=== PATIENT | male | born 1935 | race Caucasian/White ===

== ENCOUNTER 2022-12-14 19:02 | Emergency (ER) | payer MEDICARE, SELFPAY ==
--- NOTE | ~2022-12-14 | XR_ITS ---
EXAMINATION: XR chest 2V DATE: 12/14/2022 19:27 INDICATION: Cough and shortness of breath and fever. TECHNIQUE: Frontal and lateral views of the chest were obtained. COMPARISON: Chest 2 views 04/17/2016 FINDINGS: There are airspace opacities in right mid and lower lung zones. There is a small loculated right pleural effusion. No pneumothorax. The heart size is normal. IMPRESSION: 1. Airspace opacities in right mid and lower lung zones, consistent with pneumonia. 2. Small loculated right pleural effusion. Reviewed, dictated and finalized at location E. IMPRESSION: 1. Airspace opacities in right mid and lower lung zones, consistent with pneumo abraham. 2. Small loculated right pleural effusion.
--- NOTE | 2022-12-14 19:10 | ED.URI ---
HPI - URI/Sore Throat General Chief Complaint: Upper Respiratory Infection Stated Complaint: Itchy skin, cough, sob Time Seen by Provider: 12/14/22 19:12 Source: patient Mode of arrival: ambulatory Limitations: no limitations History of Present Illness HPI Narrative: 87 y/o male with hx DM2, HTN, CKD, presented for c/o itching all over for over one week without a rash; and reports shortness of breath with exertion and cough which started in the last couple of days. Son at bedside reports he appears to be breathing heavy more often after exertion, and reports he appears fatigued. States he has not even walked outside to get the mail which is unusual for him. Cough is nonproductive. Patient also states he fell twice about 2 weeks ago, and reports scrapes to lower legs and toes. Patient resides in [place], [place]. Denies associated chest pain, palpitations, n/v/d/f/c. Not taking anything for symptoms. Related Data Home Medications Medication Instructions Recorded Confirmed aspirin 81 mg tablet,delayed 81 mg PO DAILY 04/18/19 12/14/22 release blood sugar diagnostic (Contour #10 ea 04/18/19 Next Test Strips) lancets (Microlet Lancet) #50 ea 04/18/19 lancing device with lancets kit #1 ea 04/18/19 (Microlet Next Lancing Device kit) multivitamin 1 tablet PO DAILY 04/18/19 12/14/22 amlodipine 10 mg tablet 10 mg PO DAILY 12/14/22 12/14/22 metformin 850 mg tablet 850 mg PO DAILY 12/14/22 12/14/22 Allergies Allergy/AdvReac Type Severity Reaction Status Date / Time No Known Allergies Allergy Verified 12/14/22 19:15 Review of Systems Review of Systems: CONSTITUTIONAL: Denies body aches, fever, or sweats. EYES: Denies visual changes, redness, or discharge. ENT: Denies rhinorrhea, congestion, sore throat, or otalgia. CARDIOVASCULAR: Denies chest pain, palpitations, or edema. RESPIRATORY: Reports cough, sob, denies wheezing. GASTROINTESTINAL: Denies abdominal pain, nausea, vomiting, or diarrhea. GENITOURINARY: Denies dysuria or hematuria. SKIN: Reports itching and abrasions; Denies rash MUSCULOSKELETAL: Denies back pain, joint pain, or myalgia. NEUROLOGIC: Denies headache, numbness, tingling, or weakness. 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 Please see nursing chart for further information. There is no relevant family history pertinent to the presenting complaint Exam Narrative: GENERAL: mildly ill-appearing, in no acute distress. EYES: EOMI. No redness or drainage. Conjunctivae normal. ENT: Mucous membranes pink and moist. No rhinorrhea. NECK: Normal AROM. Supple. CHEST: No respiratory distress. Lungs diminished with faint crackle to bilateral bases; frequent moist [employer] cough. Speaking in full sentences. HEART: Regular rate and rhythm. No murmur appreciated. ABDOMEN: Soft, nontender, nondistended, normal active bowel sounds. EXTREMITIES: Normal range of motion. No edema. SKIN: Warm, dry, no rash. Dry flaky skin noted. Scattered abrasions over the right great toe, left 2nd-4th toes, no swelling redness or purulent drainage. Capillary refill normal. Normal skin turgor. NEURO: Alert and oriented x3. Ga
[2022-12-14 19:14] VITALS: BP 153/73; PULSE 100; RESP 18; TEMP 38; O2SAT 94
[2022-12-14 19:17] VITALS: BP 153/73; PULSE 100; RESP 18; TEMP 38; O2SAT 94
[2022-12-14 19:48] LABS: Glucose Point of Care 176 mg/dl (65-105)
== END 2022-12-14 20:10 | disposition short-term general hospital (02) ==
PROVIDERS: Emergency Provider Nurse Practitioner Family
DX: J18.1 Lobar pneumonia, unspecified organism (principal); Z20.822 Contact with and (suspected) exposure to COVID-19; Z87.891 Personal history of nicotine dependence; I12.9 Hypertensive chronic kidney disease with stage 1 through stage 4 chronic kidney disease, or unspecified chronic kidney disease; E11.22 Type 2 diabetes mellitus with diabetic chronic kidney disease; N18.30 Chronic kidney disease, stage 3 unspecified; Z79.84 Long term (current) use of oral hypoglycemic drugs; E11.42 Type 2 diabetes mellitus with diabetic polyneuropathy; E03.9 Hypothyroidism, unspecified; Z79.82 Long term (current) use of aspirin
CPT/HCPCS: 71046; 82948; 87426; 99213; C9803; G0463

== ENCOUNTER → 2023-01-18 11:29 | Outpatient (CLI) | payer MEDICARE, SELFPAY ==
--- NOTE | ~2023-01-18 | XR_ITS ---
EXAMINATION: XR chest 2V DATE: 01/18/2023 11:42 INDICATION: Aspiration pneumonia. TECHNIQUE: Frontal and lateral views of the chest were obtained. COMPARISON: Chest 2 views 12/14/2022 FINDINGS: There is a small loculated right pleural effusion. There are airspace opacities at right connor ng base. No pneumothorax. There is mild scarring at right lung apex. The heart size is normal. IMPRESSION: 1. Stable small loculated right pleural effusion. 2. Stable airspace opacities at right lung base, consistent with atelectasis versus pneumonia. Reviewed, dictated and finalized at location A. IMPRESSION: 1. Stable small loculated right pleural effusion. 2. Stable airspace opacities at right lung base, consistent with atelectasis ve rsus pneumonia.
== END ==
PROVIDERS: PCP Student in an Organized Health Care Education/Training Program; Visit Provider Internal Medicine
DX: J69.0 Pneumonitis due to inhalation of food and vomit (principal); R91.8 Other nonspecific abnormal finding of lung field
CPT/HCPCS: 71046

== ENCOUNTER → 2023-04-02 11:59 | Outpatient (CLI) | payer MEDICARE, SELFPAY ==
--- NOTE | ~2023-04-02 | XR_ITS ---
EXAMINATION: XR chest 2V DATE: 04/02/2023 12:29 INDICATION: Weakness and other abnormalities of breathing TECHNIQUE: PA and lateral views of the chest were obtained. COMPARISON: Chest radiograph dated 01/18/2023 FINDINGS: No interval change in opacities in the right mid and lower lung zone. This includes a small right ple ural effusion which appears to remain at least partially loculated along the lateral and posterior as pects of the lung. Left lung remains clear. No pulmonary edema, pneumothorax or left-sided pleural ef fusion. The cardiomediastinal silhouette is normal. Mild thoracic spondylosis. IMPRESSION: 1. No significant change in a small likely at least partially loculated right pleural effusion with a ssociated atelectasis or pneumonia. Given that this unilateral effusion has persistent for over 3 mon ths would recommend further evaluation with contrast enhanced chest CT. Reviewed, dictated and finalized at location A. IMPRESSION: 1. No significant change in a small likely at least partially loculated right p leural effusion with associated atelectasis or pneumonia. Given that this unila teral effusion has persistent for over 3 months would recommend further evaluat ion with contrast enhanced chest CT.
== END ==
PROVIDERS: PCP Nurse Practitioner; Visit Provider Nurse Practitioner
DX: R53.1 Weakness (principal); R06.89 Other abnormalities of breathing
CPT/HCPCS: 71046

== ENCOUNTER 2023-10-22 11:16 | Outpatient (CLI) | payer MEDICARE, SELFPAY ==
--- NOTE | ~2023-10-22 | CT_ITS ---
CT Scan of the Chest without Contrast: Clinical Indication: Pleural effusion Technique: Contiguous sections were acquired throughout the chest without intravenous contrast. Dose reduction technique was used on this scan by utilizing automated exposure control and iterative recon struction technique. The dose-length product (DLP) was 247.80 mGy-cm. Findings: There is no evidence of any significant mediastinal, hilar or axillary lymphadenopathy. The mediastin al soft tissues appear normal. No pericardial effusion. Small right pleural effusion present, with thickening of the pleural lining. There is mild right basi lar atelectatic change. Probable postoperative scarring and distortion the right lung. No suspicious pulmonary nodule seen. Images through the upper abdomen reveal no abnormalities. Impression: Small right basilar empyema versus other complex/exudative effusion, with associated right basilar at electasis. Probable postoperative scarring/distortion in the right lung. Reviewed, dictated and finalized at [facility]. Impression: Small right basilar empyema versus other complex/exudative effusion, with assoc iated right basilar atelectasis. Probable postoperative scarring/distortion in the right lung.
== END 2023-10-22 11:17 ==
LOC: MICIMG 11:16
PROVIDERS: PCP Internal Medicine; Visit Provider Student in an Organized Health Care Education/Training Program
DX: J90 Pleural effusion, not elsewhere classified (principal); R91.8 Other nonspecific abnormal finding of lung field
CPT/HCPCS: 71250